=== PATIENT | female | born 1965 | race African-American/Black ===

== ENCOUNTER 2018-07-10 15:51 | Outpatient (CLI) | payer OTHER | END 2018-07-10 15:52 | disposition home or self-care (01) | LOC: DTY/OP 15:51 | PROVIDERS: ATTEND Surgery | DX: E66.01 Morbid (severe) obesity due to excess calories (principal) | CPT/HCPCS: 97802 ==

== ENCOUNTER 2018-08-10 16:13 | Outpatient (CLI) | payer OTHER | END 2018-08-10 16:14 | disposition home or self-care (01) | LOC: DTY/OP 16:13 | PROVIDERS: ATTEND Surgery | DX: E66.01 Morbid (severe) obesity due to excess calories (principal) | CPT/HCPCS: 97802 ==

== ENCOUNTER 2018-08-31 15:57 | Outpatient (CLI) | payer OTHER | END 2018-08-31 15:58 | disposition home or self-care (01) | LOC: DTY/OP 15:57 | PROVIDERS: ATTEND Surgery | DX: E66.01 Morbid (severe) obesity due to excess calories (principal) | CPT/HCPCS: 97802 ==

== ENCOUNTER 2018-10-10 15:53 | Outpatient (CLI) | payer OTHER | END 2018-10-10 15:54 | disposition home or self-care (01) | LOC: DTY/OP 15:53 | PROVIDERS: ATTEND Surgery | DX: E66.01 Morbid (severe) obesity due to excess calories (principal) | CPT/HCPCS: 97802 ==

== ENCOUNTER 2018-11-06 01:44 | Outpatient (CLI) | payer OTHER ==
[2018-11-06 18:25] LABS: #Basophils 0.1 thou/uL (0.0-0.2); #Eosinphils 0.2 thou/uL (0.0-0.7); #Lymphocytes 2.2 thou/uL (1.20-3.40); #Monocytes 0.5 thou/uL (0.11-0.59); #Neutrophils 5.2 thou/uL (1.40-6.50); %Basophils 1.1 % (0.0-1.0); %Lymphocytes 26.7 % (21.0-51.0); %Monocytes 6.6 % (0.0-10.0); %Neutrophils 63.6 % (42.0-75.0); Hemoglobin 13.7 g/dL (12.0-16.0); Mean Corpuscular HGB CONC 31.6 g/dL (32.0-36.0); Mean Corpuscular Hemoglobin 25.8 pg (27.0-31.0); Mean Corpuscular Volume 81.8 fL (78.0-98.0); Platelet Count 357 thou/uL (130-400); RBC Distribution Width 13.1 % (11.5-14.5); Red Blood Cell (RBC) Count 5.31 mill/uL (4.20-5.40); White Blood Cell (WBC) Count 8.2 thou/uL (4.8-10.8)
[2018-11-06 18:41] LABS: Hemoglobin A1c 5.1 % (4.0-6.0)
[2018-11-06 18:44] LABS: ALT (SGPT) 14 U/L (8-55); AST (SGOT) 28 U/L (5-34); Albumin 4.4 g/dL (3.5-5.0); Alkaline Phosphatase 79 U/L (40-150); Anion Gap 15 mmol/L (10-20); BUN (Urea Nitrogen) 35 mg/dL (9.8-20.1); Bilirubin, Direct 0.2 mg/dL (0.1-0.3); Bilirubin, Total 0.4 mg/dL (0.2-1.2); Calc. Creatinine Clearance 0 mL/min (70-130); Calcium 10.1 mg/dL (7.8-10.44); Carbon Dioxide 23 mmol/L (22-29); Chloride 105 mmol/L (98-107); Estimated GFR-MDRD 86; Globulin 2.9 g/dL (2.4-3.5); Glucose 90 mg/dL (70-105); Potassium 4.3 mmol/L (3.5-5.1); Protein, Total 7.3 g/dL (6.0-8.3); Sodium 139 mmol/L (136-145)
--- NOTE | 2018-11-06 18:52 | RAD ---
PA AND LATERAL CHEST: History: Pre op. FINDINGS: Heart size and mediastinum are within normal limits. The lungs are clear of infiltrates. No significa nt bony findings. IMPRESSION: No active intrathoracic disease. POS: JUAN
== END 2018-11-06 01:45 | disposition home or self-care (01) ==
LOC: LABBT 01:44
PROVIDERS: ATTEND Surgery
DX: Z01.818 Encounter for other preprocedural examination (principal); E66.01 Morbid (severe) obesity due to excess calories
CPT/HCPCS: 71046; 80053; 80076; 83036; 85025

== ENCOUNTER 2018-11-06 17:00 | Inpatient (IN) | payer OTHER ==
[2018-11-06 17:34] VITALS: BMI 49.6
[2018-11-08] MEDS ORDERED: Heparin 5,000 UNITS/ML VIAL ONE (07:53)
[2018-11-08] MEDS ORDERED: Fentanyl 250 MCG/5 ML VIAL ONE (08:26)
[2018-11-08] MEDS ORDERED: Lidocaine 2% Jelly 5 ML TUBE ONE (08:26)
[2018-11-08] MEDS ORDERED: Midazolam HCl 2 mg/2 ml Vial ONE ×2 (08:26→08:28)
[2018-11-08] MEDS ORDERED: Bupivacaine/Epinephrine 0.25% 30 ML VIAL ONE (08:29)
[2018-11-08] MEDS ORDERED: Fentanyl 100 MCG/2 ML VIAL ONE ×3 (10:25→12:11)
[2018-11-08] MEDS ORDERED: Promethazine HCl 25 MG/ML VIAL SLOW IVP PRN (11:42)
[2018-11-08] MEDS ORDERED: Ondansetron HCl/PF 4 MG/2 ML Vial IVP PRN (11:42)
[2018-11-08] MEDS ORDERED: Promethazine HCl 25 MG/ML VIAL IM PRN ×3 (11:42→12:15)
[2018-11-08] MEDS ORDERED: Dextrose 50% Abboject 50 ML SYRINGE SLOW IVP PRN (11:46)
[2018-11-08] MEDS ORDERED: hydrALAZINE 20 MG/ML VIAL SLOW IVP PRN (11:46)
[2018-11-08] MEDS ORDERED: diphenhydrAMINE 50 MG/ML VIAL IVP PRN ×2 (11:46→12:15)
[2018-11-08] MEDS ORDERED: Ondansetron PF 4 MG/2 ML Vial IVP PRN ×2 (11:46→12:15)
[2018-11-08] MEDS ORDERED: Dextrose 5% in Water 1,000 ML IV PRN (11:46)
[2018-11-08] MEDS ORDERED: Acetaminophen/Codeine Oral Solution PO PRN (11:48)
[2018-11-08] MEDS ORDERED: Promethazine HCl 25 MG/ML VIAL ONE (12:08)
[2018-11-08] MEDS ORDERED: Succinylcholine Chloride 20 MG/ML 10 ml SYRINGE FS ONE (12:12)
[2018-11-08] MEDS ORDERED: PROPOFOL 200 MG/20 ML VIAL ONE (12:12)
[2018-11-08] MEDS ORDERED: Dexamethasone 20 MG/5 ML VIAL ONE (12:12)
[2018-11-08] MEDS ORDERED: Lidocaine 1% PF 5 ML VIAL ONE (12:12)
[2018-11-08] MEDS ORDERED: Glycopyrrolate 0.2 MG/ML 5 ML SYRINGE ONE (12:12)
[2018-11-08] MEDS ORDERED: Ondansetron PF 4 MG/2 ML Vial ONE (12:12)
[2018-11-08] MEDS ORDERED: Rocuronium Bromide 10 MG/ML (10ML VIAL) ONE (12:12)
[2018-11-08] MEDS ORDERED: Communication Order-Pharmacy FS SCH (12:15)
[2018-11-08] MEDS ORDERED: Zolpidem Tartrate 5 MG TAB PO PRN (12:15)
[2018-11-08] MEDS ORDERED: diphenhydrAMINE 25 MG CAP PO PRN (12:15)
[2018-11-08] MEDS ORDERED: fentaNYL Citrate/PF 2,000 MCG in Sodium Chloride 0.9% 60 ML IV PRN (12:15)
[2018-11-08] MEDS ORDERED: Naloxone HCl 0.4 mg/ml Vial IV PRN (12:15)
[2018-11-08] MEDS ORDERED: diphenhydrAMINE 50 MG/ML VIAL IM PRN (12:15)
[2018-11-08] MEDS: CEFAZOLIN 2 GM in Premix Bag 1 BAG IVPB SCH (16:12)
[2018-11-08] MEDS: D5 1/2 NS w/20 mEq KCL 1,000 ML IV SCH (16:12)
[2018-11-09] MEDS: CEFAZOLIN 2 GM in Premix Bag 1 BAG IVPB SCH (00:37)
[2018-11-09] MEDS: D5 1/2 NS w/20 mEq KCL 1,000 ML IV SCH ×4 (00:37→23:37)
[2018-11-09 06:26] LABS: #Lymphocytes 1.3 thou/uL (1.20-3.40); #Neutrophils 8.5 thou/uL (1.40-6.50); %Basophils 0.2 % (0.0-1.0); %Lymphocytes 11.6 % (21.0-51.0); %Monocytes 9.5 % (0.0-10.0); %Neutrophils 78.7 % (42.0-75.0); Hemoglobin 12.5 g/dL (12.0-16.0); Mean Corpuscular HGB CONC 32.3 g/dL (32.0-36.0); Mean Corpuscular Hemoglobin 26.2 pg (27.0-31.0); Mean Corpuscular Volume 81.1 fL (78.0-98.0); Platelet Count 332 thou/uL (130-400); RBC Distribution Width 13.3 % (11.5-14.5); Red Blood Cell (RBC) Count 4.78 mill/uL (4.20-5.40); White Blood Cell (WBC) Count 10.8 thou/uL (4.8-10.8)
[2018-11-09 06:46] LABS: Anion Gap 12 mmol/L (10-20); BUN (Urea Nitrogen) 11 mg/dL (9.8-20.1); Calc. Creatinine Clearance 175 mL/min (70-130); Calcium 8.9 mg/dL (7.8-10.44); Carbon Dioxide 22 mmol/L (22-29); Chloride 105 mmol/L (98-107); Estimated GFR-MDRD Greater than 90; Glucose 138 mg/dL (70-105); Potassium 4.1 mmol/L (3.5-5.1); Sodium 135 mmol/L (136-145)
[2018-11-09] MEDS: Enoxaparin Sodium 40 MG/0.4 ML SYRINGE SC SCH (08:04)
[2018-11-09] MEDS: Pantoprazole 40 MG VIAL IVP SCH (08:04)
--- NOTE | 2018-11-09 09:00 | OP ---
DATE OF PROCEDURE: 11/08/2018 PREOPERATIVE DIAGNOSIS: Morbid obesity with history of hiatal hernia and reflux. PROCEDURES PERFORMED: Laparoscopic Cheikh-en-Y gastric bypass repair of hiatal hernia and esophagogastroduodenoscopy. INDICATIONS FOR PROCEDURE: A 52-year-old morbidly obese female with severe reflux. She had a CT scan showing moderate hiatal hernia. FINDINGS: Used about 100 cm Cheikh limb, 50 cm biliopancreatic limb, moderate hiatal hernia. DESCRIPTION OF PROCEDURE: After informed consent was obtained, the patient was taken to the operating room and given general endotracheal anesthesia. She was placed in the supine position. Her abdomen was prepped and draped in usual fashion. Local anesthesia was infiltrated subcutaneously and deep, and a 12-mm incision was performed approximately 8 inches below the xiphoid slightly to the left. Veress needle was inserted. Drop test was performed. Pneumoperitoneum was created to a volume of 2 L of carbon dioxide. Utilizing a bladeless 12-mm trocar and 0-degree laparoscope, direct visual entry into the abdominal cavity was performed. Pneumoperitoneum was then created to a pressure of 15 mmHg. Under direct vision, two 12-mm ports were placed on the right and then one on the left upper quadrant. The omentum was grasped and advanced superiorly to expose the ligament of Treitz. The small bowel was then run 50 cm and divided utilizing the linear 60-mm white load stapler. Now, there was some hemorrhage from the cut surface of the mesentery. This was controlled with hemoclips. Then, the Cheikh limb was created measuring of 100 cm, and a [id number] functional, end-to-end anastomosis was performed. The two loops of bowel were approximated with 3-0 silk suture tied intracorporeally. Enterotomies were performed, and the linear 60-mm white load stapler was inserted, one limb in each limb of bowel, closed, and fired. The common enterotomy was closed with a running PDS 3-0 V-Loc. Then, the potential hernia space Marrufo was closed with a pursestring of 2-0 silk suture tied intracorporeally. Then, the patient was placed in steep reverse Trendelenburg position. Stephanie liver retractor was inserted. The left lobe of the liver was retracted superiorly. She had a moderate-sized hiatal hernia. The gastrophrenic ligament was divided utilizing the LigaSure. The peritoneum was opened anteriorly with the LigaSure. The left crura was defined with the LigaSure. The hernia was completely reduced. Then, a gastric pouch was created. The lesser curvature was dissected entering the lesser sac. A transverse cut on the lesser curve was performed with the linear 60-mm blue load stapler. Then, the pouch was further defined through the angle of His with a series of blue loads. At this point, a gastrotomy was performed first by scoring the serosa with an electrocautery and then opening up with the [place] dissector. Then, the Cheikh limb was found and brought up to that area, and then a mesenteric score was performed with electrocautery and the [place] dissector. The linear 60-mm blue load stapler was used, one limb was inserted into the jejunum, one limb into the gastric pouch, closed, and fired. The gastrojejunostomy was then further closed with a running 3-0 V-Loc. Intraoperative endoscopy was then performed. The video endoscope was inserted under direct vision and advanced into the gastric pouch and immediately into the Cheikh limb. There was no evidence of obstruction, bleeding, or air leak. The Cheikh limb was decompressed. The gastric pouch was decompressed. The scope was removed. Trocars and retractors were removed. On the right, there was a little bit of bleeding, so a GraNee needle and 0 Vicryl suture were used to control that. Hemostasis was assured. Skin was closed with interrupted 4-0 Rapide. Dermabond was applied. The patient tolerated the procedure well and transferred to Recovery in good condition. Sponge and needle count was verified correct x2. Job ID: [id number]
--- NOTE | 2018-11-09 12:16 | RAD ---
15 ML GASTROGRAFIN MODIFIED UPPER GI: Date: 11/09/18 INDICATION: Status post gastric bypass procedure. TECHNIQUE: 15 mL of Gastrografin administered PO followed by a modified upper GI evaluation. The total fluorosco pic time was 9 seconds. Total exposure was 137.46 mGy*cm^2. FINDINGS: Clinical Cytogenetics Director images demonstrate gas-filled dilated loops of small bowel within the upper abdomen with nayeli us surgical clips within the left upper quadrant. Following the administration of Gastrografin, there is flow of contrast across the gastroenteric junction with slow spillage of intraluminal contrast wi thin dilated loops of small bowel within the left upper quadrant. There is no evidence of extralumina l leak or obstruction. IMPRESSION: 1. No evidence of extraluminal leak or obstruction at the gastric bypass site. 2. Some gas-filled dilated loops of small bowel within the upper abdomen suspicious for postsurgical ileus. POS: DEVI
[2018-11-09] MEDS ORDERED: Acetaminophen/Codeine Oral Solution PO PRN (13:19)
--- NOTE | 2018-11-09 14:57 | PRG ---
DATE OF SERVICE: 11/09/2018 SUBJECTIVE: The patient says that she did vomit after the Gastrografin swallow, but she feels better now. She feels a little weak. Pain is okay. OBJECTIVE: VITAL SIGNS: Her temperature is 98.8, pulse 66, blood pressure 125/61. GENERAL: She looks good. Incisions are healing well. There is no evidence of infection. LABORATORY DATA: Her white count is 10.8, hemoglobin and hematocrit are 12 and 38, and platelet count 332. Electrolytes are fine. The Gastrografin swallow showed some mild hang up at the gastrojejunostomy, but then it went down. ASSESSMENT: Doing well. PLAN: We will begin sips of clear liquids, probably keep her an extra day and then discharge tomorrow. Job ID: [id number]
[2018-11-09] MEDS: Acetaminophen/Codeine 120-12MG/5 ML UDCUP PO PRN (22:47)
[2018-11-10] MEDS: Pantoprazole 40 MG VIAL IVP SCH (09:00)
[2018-11-10] MEDS: D5 1/2 NS w/20 mEq KCL 1,000 ML IV SCH ×3 (09:00→20:43)
[2018-11-10] MEDS: Enoxaparin Sodium 40 MG/0.4 ML SYRINGE SC SCH (09:00)
--- NOTE | 2018-11-10 12:11 | DIS ---
DATE OF ADMISSION: 11/08/2018 DATE OF DISCHARGE: 11/10/2018 DISCHARGE DIAGNOSES: 1. Hiatal hernia. 2. Morbid obesity. PROCEDURES DURING ADMISSION: Laparoscopic hiatal hernia repair, laparoscopic Cheikh-en-Y gastric bypass, EGD, postoperative Gastrografin swallow. HOSPITAL COURSE: The patient was admitted, taken to the operating room, where she underwent a laparoscopic Cheikh-en-Y gastric bypass repair of hiatal hernia on EGD. Postoperatively, she has done well. X-ray was fine. She was started on liquids. She had some trouble the first day with taking enough in, but is better now. She is discharged home on Tylenol with Codeine, Elixir, and Zofran oral disintegrating tablet. She will follow up with me in 2 weeks. Job ID: [id number]
[2018-11-10] MEDS: Acetaminophen/Codeine 120-12MG/5 ML UDCUP PO PRN (19:11)
[2018-11-11] MEDS: Acetaminophen/Codeine 120-12MG/5 ML UDCUP PO PRN ×2 (05:17→17:49)
[2018-11-11] MEDS: Pantoprazole 40 MG VIAL IVP SCH (08:20)
[2018-11-11] MEDS: Enoxaparin Sodium 40 MG/0.4 ML SYRINGE SC SCH (08:20)
[2018-11-11] MEDS: D5 1/2 NS w/20 mEq KCL 1,000 ML IV SCH ×2 (08:34→17:51)
[2018-11-11 15:53] VITALS: BP 112/74; TEMP 99
--- NOTE | 2018-11-11 16:11 | PDOC.GSPN ---
Surgery Progress Note: Subj - Subjective Narrative: Patient is feeling better today and doing better in terms of her oral intake. Her nurse states that she is meeting her goal of drinking 8 ounces of fluid every 2 hours. Her laparoscopic incisions look good and she has only the normal anticipated amount of postoperative tenderness. She is afebrile with normal vital signs. She'll be discharged home this afternoon with follow-up with Dr. Ramon. Surgery Progress Note: Obj - Vital signs Vital signs: Vital Signs - Most Recent Temp Pulse Resp BP Pulse Ox 99 F 72 16 112/74 95 11/11/18 15:40 11/11/18 15:40 11/11/18 15:40 11/11/18 15:40 11/11/18 15:40 Surgery Progress Note: Results - Labs Result Diagrams: 11/09/18 06:18 11/09/18 06:18
== END 2018-11-11 18:05 | disposition home or self-care (01) | DRG 621 ==
LOC: SURG A 11-08 07:00 → SURG B 11-08 13:05
PROVIDERS: ADMIT Surgery; ATTEND Surgery
PROC: 0D164ZA Bypass Stomach to Jejunum, Percutaneous Endoscopic Approach (ICD-10-PCS; principal; 2018-11-08)
PROC: 0BQT4ZZ Repair Diaphragm, Percutaneous Endoscopic Approach (ICD-10-PCS; 2018-11-08)
PROC: 0DQV4ZZ Repair Mesentery, Percutaneous Endoscopic Approach (ICD-10-PCS; 2018-11-08)
PROC: 0DJ08ZZ Inspection of Upper Intestinal Tract, Via Natural or Artificial Opening Endoscopic (ICD-10-PCS; 2018-11-08)
DX: E66.01 Morbid (severe) obesity due to excess calories (principal); K44.9 Diaphragmatic hernia without obstruction or gangrene; K21.9 Gastro-esophageal reflux disease without esophagitis; Z68.42 Body mass index [BMI] 45.0-49.9, adult; Z88.5 Allergy status to narcotic agent; Z90.710 Acquired absence of both cervix and uterus; Z98.890 Other specified postprocedural states
CPT/HCPCS: 36415; 74241; 80048; 85025; 94760; C9113; J0131; J1100; J1644; J1650; J2001; J2250; J2405; J2550; J2704; J3010; J7050

== ENCOUNTER → 2018-11-13 | Emergency (ER) | payer OTHER ==
[~2018-11-13] MED LIST: Multivit, Adult Inj 10 ML VIAL ONE; Thiamine HCl 200 MG/2 ML VIAL ONE
== END ==
LOC: SCSER 12:11
DX: Z23 Encounter for immunization (principal); M19.90 Unspecified osteoarthritis, unspecified site; I38 Endocarditis, valve unspecified; Z79.891 Long term (current) use of opiate analgesic
CPT/HCPCS: 96365; 96368; 96375; J3411

== ENCOUNTER 2018-12-04 15:59 | Emergency (ER) | payer OTHER ==
[~2018-12-04 15:59] MED LIST changes: +Iopamidol 370 76% 100 ML VIAL ONE; -Multivit, Adult Inj 10 ML VIAL ONE; -Thiamine HCl 200 MG/2 ML VIAL ONE
[2018-12-04 16:32] LABS: Hemoglobin 13.3 g/dL (12.0-16.0); Mean Corpuscular HGB CONC 30.8 g/dL (32.0-36.0); Mean Corpuscular Hemoglobin 24.2 pg (27.0-31.0); Mean Corpuscular Volume 78.5 fL (78.0-98.0); Mean Platelet Volume 9.2 fL (7.4-10.4); Platelet Count 317 thou/uL (130-400); RBC Distribution Width 13.6 % (11.5-14.5); Red Blood Cell (RBC) Count 5.48 mill/uL (4.20-5.40); White Blood Cell (WBC) Count 7.2 thou/uL (4.8-10.8)
[2018-12-04 16:47] LABS: #Basophils 0.1 thou/uL (0.0-0.2); #Eosinphils 0.3 thou/uL (0.0-0.7); #Lymphocytes 1.8 thou/uL (1.20-3.40); #Monocytes 0.5 thou/uL (0.11-0.59); #Neutrophils 4.5 thou/uL (1.40-6.50); %Basophils 1.2 % (0.0-1.0); %Eosinophils 3.7 % (0.0-10.0); %Lymphocytes 25.5 % (21.0-51.0); %Monocytes 6.8 % (0.0-10.0); %Neutrophils 62.8 % (42.0-75.0); ALT (SGPT) 12 U/L (8-55); AST (SGOT) 18 U/L (5-34); Alkaline Phosphatase 72 U/L (40-150); Anion Gap 15 mmol/L (10-20); BUN (Urea Nitrogen) 19 mg/dL (9.8-20.1); Bilirubin, Total 0.4 mg/dL (0.2-1.2); Calc. Creatinine Clearance 0 mL/min (70-130); Calcium 9.8 mg/dL (7.8-10.44); Carbon Dioxide 22 mmol/L (22-29); Chloride 108 mmol/L (98-107); Estimated GFR-MDRD 84; Globulin 3.5 g/dL (2.4-3.5); Glucose 107 mg/dL (70-105); Lipase 32 U/L (8-78); Potassium 3.6 mmol/L (3.5-5.1); Protein, Total 7.5 g/dL (6.0-8.3); Sodium 141 mmol/L (136-145)
[2018-12-04 16:48] LABS: MDiff Complete? YES; Microcytosis SLIGHT = 6-15 cells (100X) (0-5/hpf); Platelet Morphology Comment Appears Adequate
[2018-12-04 18:15] LABS: Bilirubin Moderate (Negative); Blood, Urine Negative (Negative); Clarity Clear (Clear); Glucose, Urine (Dipstick) Negative (Negative); Leukocyte Negative (Negative); Nitrite Negative (Negative); Protein, Urine (Dipstick) 100 mg/dL (Neg-Trace)
[2018-12-04 18:20] LABS: Specific Gravity, Urine 1.026 (1.002-1.036)
[2018-12-04 18:22] LABS: Bacteria/HPF 2+ HPF (None Seen); RBC/HPF None Seen HPF (0-3); WBC/HPF None Seen HPF (0-3)
--- NOTE | 2018-12-04 20:15 | CT ---
CT ABDOMEN AND PELVIS WITH IV AND ORAL CONTRAST: History: Abdominal pain. Gastric bypass last month. Comparison: 08-04-09 FINDINGS: Mild atelectasis at the left lung base. Post-operative changes of the stomach consistent with recent gastric bypass procedure. Fluid is present within the excluded portion of the remaining stomach. Cont rast material is present within a small upper remaining gastric lumen and within the nondilated dista l small bowel. Radiopaque suture within the left upper quadrant is present within the omental fat, extending lateral ly to a nondilated loop of small bowel. No free fluid or free air. Small low density lesion involving the anterior lateral margin of the spleen is smaller than on the previous study, now 1.9 cm greatest diameter. Small right renal cyst is stable. IMPRESSION: Post-operative changes left upper quadrant. No evidence of obstruction or leak. POS: DEVI
== END 2018-12-04 19:13 | disposition home or self-care (01) ==
LOC: SCSER 15:59
DX: R10.11 Right upper quadrant pain (principal); I05.9 Rheumatic mitral valve disease, unspecified
CPT/HCPCS: 74177; 80053; 81003; 81015; 83605; 83690; 85025; 96360; Q9967

== ENCOUNTER 2019-01-04 20:19 | Emergency (ER) | payer OTHER ==
[2019-01-04] MEDS ORDERED: Multivit, Adult Inj 10 ML VIAL ONE (20:52)
== END 2019-01-04 22:15 | disposition home or self-care (01) ==
LOC: SCSER/OP 20:19
DX: Z53.21 Procedure and treatment not carried out due to patient leaving prior to being seen by health care provider (principal)

== ENCOUNTER 2019-02-16 09:15 | Outpatient (CLI) | payer OTHER ==
[2019-02-16 09:41] LABS: Hemoglobin 11.2 g/dL (12.0-16.0); Mean Corpuscular Hemoglobin 25.1 pg (27.0-31.0); Mean Corpuscular Volume 80.8 fL (78.0-98.0); Mean Platelet Volume 7.7 fL (7.4-10.4); Platelet Count 318 thou/uL (130-400); RBC Distribution Width 15.4 % (11.5-14.5); Red Blood Cell (RBC) Count 4.45 mill/uL (4.20-5.40); White Blood Cell (WBC) Count 5.1 thou/uL (4.8-10.8)
[2019-02-16 10:12] LABS: ALT (SGPT) 8 U/L (8-55); AST (SGOT) 12 U/L (5-34); Albumin 3.3 g/dL (3.5-5.0); Alkaline Phosphatase 63 U/L (40-150); Anion Gap 11 mmol/L (10-20); BUN (Urea Nitrogen) 11 mg/dL (9.8-20.1); Bilirubin, Direct 0.3 mg/dL (0.1-0.3); Bilirubin, Total 0.6 mg/dL (0.2-1.2); Calc. Creatinine Clearance 0 mL/min (70-130); Calcium 9.2 mg/dL (7.8-10.44); Carbon Dioxide 27 mmol/L (22-29); Chloride 109 mmol/L (98-107); Cholesterol 164 mg/dl (< 200 Desired); Estimated GFR-MDRD Greater than 90; Globulin 2.6 g/dL (2.4-3.5); Glucose 83 mg/dL (70-105); HDL Cholesterol 41 mg/dL (>60 Neg Risk); LDL Cholesterol, Calculated 110 mg/dL; Potassium 3.5 mmol/L (3.5-5.1); Protein, Total 5.9 g/dL (6.0-8.3); Sodium 143 mmol/L (136-145); Triglycerides 65 mg/dL (Less than 150)
[2019-02-16 10:22] LABS: Thyroid Stimulating Hormone 1.5455 uIU/mL (0.35-4.94)
--- NOTE | 2019-02-16 10:37 | ULT ---
RIGHT UPPER QUADRANT ULTRASOUND: Date: 02/16/19 HISTORY: Right upper quadrant pain. TECHNIQUE: Multiplanar Wild scale sonographic imaging of the right upper quadrant provided. FINDINGS: The imaged pancreas is unremarkable. The tail of the pancreas is obscured by bowel gas. There is no focal liver lesion identified. There is no gallbladder wall thickening or pericholecystic fluid. The salesforce consultant reports a negative Duong's sign. There is echogenic material layering within the posterior aspect of the gallbladder with shadowing an d mobility, suggesting numerous small mobile gallstones. The common bile duct measures 3 mm, within n ormal limits. The right kidney measures 10.3 cm in craniocaudal dimension and demonstrates no evidence for stone, h ydronephrosis, or mass lesion. IMPRESSION: Cholelithiasis. No evidence for cholecystitis or biliary dilatation. POS: [facility]
[2019-02-16 12:09] LABS: Folate (Folic Acid) 11.4 ng/mL (7.0-31.4)
[2019-02-16 12:18] LABS: Vitamin D, 25 Hydroxy 33.3 ng/ml (> 30.0)
== END 2019-02-16 09:16 | disposition home or self-care (01) ==
LOC: SCSULT 09:15
PROVIDERS: ATTEND Surgery
DX: Z51.81 Encounter for therapeutic drug level monitoring (principal); R11.0 Nausea; R10.11 Right upper quadrant pain; E56.9 Vitamin deficiency, unspecified; K80.20 Calculus of gallbladder without cholecystitis without obstruction; Z79.899 Other long term (current) drug therapy
CPT/HCPCS: 36415; 76705; 80053; 80061; 82248; 82306; 82607; 82746; 84425; 84443; 85027

== ENCOUNTER 2019-03-28 16:39 | Outpatient (CLI) | payer OTHER ==
[2019-03-28 17:16] LABS: #Basophils 0.1 thou/uL (0.0-0.2); #Eosinphils 0.1 thou/uL (0.0-0.7); #Lymphocytes 2.1 thou/uL (1.20-3.40); #Monocytes 0.4 thou/uL (0.11-0.59); #Neutrophils 3.2 thou/uL (1.40-6.50); %Basophils 1.5 % (0.0-1.0); %Eosinophils 2.4 % (0.0-10.0); %Lymphocytes 34.5 % (21.0-51.0); %Monocytes 7.2 % (0.0-10.0); %Neutrophils 54.3 % (42.0-75.0); Mean Corpuscular HGB CONC 31.1 g/dL (32.0-36.0); Mean Corpuscular Hemoglobin 25.7 pg (27.0-31.0); Mean Corpuscular Volume 82.8 fL (78.0-98.0); Mean Platelet Volume 8.9 fL (7.4-10.4); Platelet Count 304 thou/uL (130-400); RBC Distribution Width 14.2 % (11.5-14.5); Red Blood Cell (RBC) Count 4.67 mill/uL (4.20-5.40)
[2019-03-28 17:43] LABS: ALT (SGPT) 8 U/L (8-55); AST (SGOT) 14 U/L (5-34); Albumin 3.8 g/dL (3.5-5.0); Alkaline Phosphatase 74 U/L (40-150); Anion Gap 10 mmol/L (10-20); BUN (Urea Nitrogen) 15 mg/dL (9.8-20.1); Bilirubin, Direct 0.2 mg/dL (0.1-0.3); Bilirubin, Total 0.3 mg/dL (0.2-1.2); Calc. Creatinine Clearance 0 mL/min (70-130); Calcium 9.2 mg/dL (7.8-10.44); Carbon Dioxide 26 mmol/L (22-29); Chloride 107 mmol/L (98-107); Estimated GFR-MDRD Greater than 90; Globulin 2.5 g/dL (2.4-3.5); Glucose 89 mg/dL (70-105); Potassium 3.6 mmol/L (3.5-5.1); Protein, Total 6.3 g/dL (6.0-8.3); Sodium 139 mmol/L (136-145)
--- NOTE | 2019-03-29 16:48 | EKG ---
Test Reason : Blood Pressure : / mmHG Vent. Rate : 059 BPM Atrial Rate : 059 BPM P-R Int : 168 ms QRS Dur : 080 ms QT Int : 422 ms P-R-T Axes : 046 021 020 degrees QTc Int : 417 ms Sinus bradycardia Otherwise normal ECG When compared with ECG of 08-JAN-2016 21:38, No significant change was found Confirmed by DR. Linda HARTMAN ([id number]) on 03/29/2019 4:48:15 PM Referred By: FELA Confirmed By:DR. Linda HARTMAN
== END 2019-03-28 16:40 | disposition home or self-care (01) ==
LOC: LABBT 16:39
PROVIDERS: ATTEND Surgery
DX: Z01.818 Encounter for other preprocedural examination (principal); K80.20 Calculus of gallbladder without cholecystitis without obstruction
CPT/HCPCS: 80053; 80076; 85025; 93005; 93010

== ENCOUNTER 2019-03-30 10:01 | Day surgery (SDC) | payer OTHER ==
[2019-03-28 17:06] VITALS: BMI 40.3
[2019-03-30] MEDS ORDERED: Sodium Chloride 0.9% 100 ML ONE (11:04)
[2019-03-30] MEDS ORDERED: cefOXitin 2 GM VIAL ONE (11:04)
[2019-03-30] MEDS ORDERED: Bupivacaine/Epinephrine 0.25% 30 ML VIAL ONE (11:57)
[2019-03-30] MEDS ORDERED: Midazolam HCl 2 mg/2 ml Vial ONE (11:59)
[2019-03-30] MEDS ORDERED: Fentanyl 250 MCG/5 ML VIAL ONE (11:59)
[2019-03-30] MEDS ORDERED: SUGAMMADEX SODIUM 200 MG/2 ML VIAL ONE (13:05)
[2019-03-30] MEDS ORDERED: Fentanyl 100 MCG/2 ML VIAL ONE (14:00)
[2019-03-30] MEDS ORDERED: Acetaminophen/Codeine 30-300mg Tablet ONE (15:49)
[2019-03-30] MEDS ORDERED: PROPOFOL 200 MG/20 ML VIAL ONE (16:01)
[2019-03-30] MEDS ORDERED: Ondansetron PF 4 MG/2 ML Vial ONE (16:01)
[2019-03-30] MEDS ORDERED: Glycopyrrolate 0.2 MG/ML 5 ML SYRINGE ONE (16:01)
[2019-03-30] MEDS ORDERED: Dexamethasone 20 MG/5 ML VIAL ONE (16:01)
[2019-03-30] MEDS ORDERED: Ketorolac Tromethamine 30 MG/ML VIAL ONE (16:01)
[2019-03-30] MEDS ORDERED: Metoprolol Tartrate 5 MG/5 ML VIAL ONE (16:01)
[2019-03-30] MEDS ORDERED: Lidocaine 1% PF 5 ML VIAL ONE (16:01)
[2019-03-30] MEDS ORDERED: Rocuronium Bromide 10 MG/ML (10ML VIAL) ONE (16:01)
--- NOTE | 2019-04-02 09:35 | OP ---
DATE OF PROCEDURE: 03/30/2019 PREOPERATIVE DIAGNOSIS: Symptomatic cholelithiasis. PROCEDURE PERFORMED: Laparoscopic cholecystectomy. INDICATIONS: A 53-year-old female, who has been having episodic right upper quadrant pain. Ultrasound showed cholelithiasis. FINDINGS: We used indocyanine green dye preoperatively and using the special camera intraoperative, we were able to visualize the common bile duct as well as the cystic duct without evidence of any filling defects. DESCRIPTION OF PROCEDURE: After informed consent was obtained, the patient was given the indocyanine green 0.5 mL followed by 10 mL of saline IV. She was taken to the operating room, where she underwent general endotracheal anesthesia. She was placed in supine position. Abdomen was prepped and draped in usual fashion. Local anesthesia infiltrated subcutaneously and deep. A supraumbilical incision was performed. Subcu divided sharply. The fascia grasped and 2 stay sutures of 0 Vicryl placed in each side of midline. Midline incised. Digital palpation revealed no local adhesions. A blunt 12 mm trocar inserted pneumoperitoneum was created to a pressure of 15 mmHg. A 0 degree laparoscope inserted under direct vision. Three 5 mm ports were placed subcostally. Gallbladder was grasped and advanced superiorly. The cystic duct artery in critical view was dissected out. Then, the camera was switched to the imaging mode for the dye and this showed free flow of dye from the common duct into the gallbladder. No obstruction. The duct was triply ligated with hemoclips and divided. The artery triply ligated with hemoclips and divided. The gallbladder removed from its fossa utilizing electrocautery, was placed in endosac, removed from the abdomen in the endosac. Hemostasis assured. Trocars and retractors removed. The fascia closed with interrupted 0 Vicryl suture. The skin closed with interrupted 4-0 Rapide. Dermabond applied. The patient tolerated the procedure well, transferred to Recovery in good condition. Sponge and needle count verified correct x2. Job ID: [id number]
== END 2019-03-30 17:40 | disposition home or self-care (01) ==
LOC: SDC 10:01
PROVIDERS: ATTEND Surgery
PROC: 0FT44ZZ Resection of Gallbladder, Percutaneous Endoscopic Approach (ICD-10-PCS; principal; 2019-03-30)
DX: K80.10 Calculus of gallbladder with chronic cholecystitis without obstruction (principal); I83.90 Asymptomatic varicose veins of unspecified lower extremity; Z88.5 Allergy status to narcotic agent; Z91.012 Allergy to eggs; Z79.899 Other long term (current) drug therapy
CPT/HCPCS: 88304; J0694; J2250; J3010; J3490

== ENCOUNTER 2020-05-10 18:28 | Inpatient (IN) | payer OTHER ==
[2020-05-10 18:45] LABS: #Basophils 0.1 thou/uL (0.0-0.2); #Eosinphils 0.1 thou/uL (0.0-0.7); #Lymphocytes 1.9 thou/uL (1.20-3.40); #Monocytes 0.4 thou/uL (0.11-0.59); #Neutrophils 2.6 thou/uL (1.40-6.50); %Basophils 1.1 % (0.0-1.0); %Eosinophils 2.8 % (0.0-10.0); %Lymphocytes 37.3 % (21.0-51.0); %Monocytes 7.9 % (0.0-10.0); %Neutrophils 50.8 % (42.0-75.0); Hemoglobin 12.2 g/dL (12.0-16.0); Mean Corpuscular HGB CONC 32.7 g/dL (32.0-36.0); Mean Corpuscular Hemoglobin 27.1 pg (27.0-31.0); Platelet Count 241 thou/uL (130-400); RBC Distribution Width 12.5 % (11.5-14.5); White Blood Cell (WBC) Count 5.1 thou/uL (4.8-10.8)
[2020-05-10 19:08] LABS: ALT (SGPT) 11 U/L (8-55); AST (SGOT) 16 U/L (5-34); Albumin 3.8 g/dL (3.5-5.0); Alkaline Phosphatase 74 U/L (40-110); Anion Gap 7 mmol/L (10-20); BUN (Urea Nitrogen) 14 mg/dL (9.8-20.1); Bilirubin, Total 0.3 mg/dL (0.2-1.2); Calc. Creatinine Clearance 0 mL/min (70-130); Calcium 8.7 mg/dL (7.8-10.44); Carbon Dioxide 30 mmol/L (22-29); Chloride 106 mmol/L (98-107); Estimated GFR-MDRD 86; Globulin 2.4 g/dL (2.4-3.5); Glucose 92 mg/dL (70-105); Potassium 3.7 mmol/L (3.5-5.1); Protein, Total 6.2 g/dL (6.0-8.3); Sodium 139 mmol/L (136-145)
[2020-05-10 20:28] LABS: Bilirubin Negative (Negative); Blood, Urine Negative (Negative); Clarity Clear (Clear); Glucose, Urine (Dipstick) Normal (Negative); Ketone, Urine Negative (Negative); Leukocyte Negative Leu/uL (Negative); Nitrite Negative (Negative); Protein, Urine (Dipstick) Negative (Neg-Trace); Specific Gravity, Urine 1.026 (1.002-1.036); Urobilinogen Normal mg/dL (Less than 2)
[2020-05-10] MEDS ORDERED: Morphine 4 MG/ML VIAL ONE (22:44)
[2020-05-11] MEDS ORDERED: Pantoprazole 40 MG VIAL ONE (01:21)
[2020-05-11] MEDS ORDERED: Pantoprazole 80 MG, Admixture Fee 1 EACH in Sodium Chloride 0.9% 100 ML IVPB SCH (01:30)
[2020-05-11 03:11] VITALS: BMI 32.1
[2020-05-11] MEDS ORDERED: Ondansetron ODT 4 MG TAB SL PRN (03:14)
[2020-05-11] MEDS ORDERED: Ondansetron PF 4 MG/2 ML Vial IVP PRN ×2 (03:14→19:56)
[2020-05-11] MEDS: Morphine 4 MG/ML VIAL SLOW IVP PRN ×2 (03:41→06:47)
[2020-05-11] MEDS: Sodium Chloride 0.9% 1,000 ML IV SCH ×2 (03:41→12:16)
--- NOTE | 2020-05-11 07:32 | CT ---
CT ABDOMEN AND PELVIS WITH IV CONTRAST: Date: 05/10/2020 PROVIDED CLINICAL HISTORY: Abdominal pain. FINDINGS: Comparison is made with the study dated 12/04/2018. The visualized lung bases are free of significant opacity. The solid abdominal organs demonstrate no significant abnormality. Changes of prior cholecystectomy and Cheikh-en-Y gastric bypass are redemonstrated. The appendix appear s normal. There is a focal ectatic loop of bowel within the left upper quadrant adjacent to postsurgi peyton change. There is no evidence for bowel obstruction. There is no inflammatory fat stranding, free fluid, or free intraperitoneal air apparent. The regional major vascular structures appear unremarkable. The osseous structures demonstrate no concerning lytic or blastic lesions. IMPRESSION: No evidence for an acute process. POS: CHRIS
[2020-05-11 13:48] LABS: SARS-CoV-2 MS2 Positive; SARS-CoV-2 N Gene Negative; SARS-CoV-2 S Gene Negative; SARS-CoV-2 by NAA Not Detected (NotDetected); SARS-CoV-2 orf1ab Negative
[2020-05-11] MEDS ORDERED: Morphine 2 MG/ML VIAL SLOW IVP PRN (19:56)
[2020-05-11] MEDS: Pantoprazole 40 MG VIAL IVP SCH (20:23)
[2020-05-11] MEDS: D5 1/2 NS w/20 mEq KCL 1,000 ML IV SCH (20:23)
--- NOTE | 2020-05-12 00:12 | CON ---
DATE OF CONSULTATION: 05/11/2020 CHIEF COMPLAINT: Abdominal pain. HISTORY OF PRESENT ILLNESS: Ms. Matthews is a 54-year-old woman who underwent gastric bypass surgery back in early 2018. Over the last week, she has had epigastric aching pain that radiates through to her back that lasts for hours at a time. She has had some degree of symptoms intermittently for months, but this is much worse over the last few days. She has had nausea, but no vomiting with this. No diarrhea or constipation. Her pain occurs immediately after eating primarily. She had a CT scan of the abdomen and pelvis performed yesterday, which showed retention of the oral contrast in her stomach. Primarily, stools noted in the colon as well. She has had no blood in the stool. PAST MEDICAL HISTORY: Morbid obesity and mitral valve regurgitation. PAST SURGICAL HISTORY: Gastric bypass in October 2018. She had cholecystectomy in March 2019. She has had hysterectomy and hernia repair. FAMILY HISTORY: Negative for GI malignancies. SOCIAL HISTORY: No alcohol, tobacco, or drugs. ALLERGIES: NO KNOWN DRUG ALLERGIES. MEDICATIONS: Pantoprazole. As an outpatient, she is on vitamins including multiple vitamin, iron, B12, vitamin D, omega-3 fatty acids. REVIEW OF SYSTEMS: Negative x10 systems reviewed except as stated in the history of present illness. PHYSICAL EXAMINATION: VITAL SIGNS: Temperature 98.6, pulse 56, blood pressure 117/72. GENERAL: She is in no acute distress. Alert and oriented x3. HEENT: Eyes have no scleral icterus. Oropharynx is clear without lesions. No cervical or supraclavicular lymphadenopathy. LUNGS: Clear to auscultation bilaterally. HEART: Regular rate and rhythm without murmur. ABDOMEN: Soft. Mild tenderness in the epigastric region without guarding. Bowel sounds are present. EXTREMITIES: No lower extremity edema. LABORATORY DATA: White blood cell count 5.1, hemoglobin 12.2, platelets 241. Creatinine is 0.83. Bilirubin 0.3, AST 16, ALT 11, alkaline phosphatase 74, lipase 6. IMPRESSION: Epigastric pain. CT scan shows apparent retention of contrast in the gastric pouch. She has had gastric bypass surgery back in October 2018 and cholecystectomy in March 2019. Her liver tests are normal. She does have some significant stool in the colon noted by CT. We will plan upper endoscopy to rule out anastomotic ulcer or stenosis. If this is normal, then consider adding a laxative. RECOMMENDATIONS: 1. EGD tomorrow. 2. Proton pump inhibitor. Job ID: [id number]
[2020-05-12] MEDS: D5 1/2 NS w/20 mEq KCL 1,000 ML IV SCH ×2 (06:06→15:34)
--- NOTE | 2020-05-12 06:12 | HP ---
CHIEF COMPLAINT: Abdominal pain. HISTORY OF PRESENT ILLNESS: Ms. Matthews is a 54-year-old woman, who is one year status post laparoscopic gastric bypass by Dr. Ramon. She has lost over 100 pounds with the procedure, but has had problems with intermittent epigastric pain and nausea. This has been a bit of a problem since the operation, but her symptoms were tolerable. She states that Dr. Ramon had tried to order some additional imaging to evaluate her symptoms, but her insurance denied it, so she has just been coping with it. She states that, however, for the past 5 days, the pain has been getting much worse whenever she tries to eat and on the day of her admission became so severe that she was literally brought to her knees. She has terrible nausea, but is unable to vomit. She feels like it would help if she could. She has not had any fevers or chills. The pain is sharp and severe and located in her epigastrium. It is exacerbated by eating. Nothing she tried at home was giving her any relief. She did start taking eulv-mcl-uqhoehb omeprazole a few days ago, but has not noticed any difference in her symptoms. PAST MEDICAL HISTORY: Mitral regurgitation and morbid obesity. PAST SURGICAL HISTORY: Gastric bypass, hysterectomy, cholecystectomy, history of esophageal dilatation in 2014, and hernia repair. SOCIAL HISTORY: The patient does not smoke or use illicit drugs, and drinks only rarely and not recently. ALLERGIES: SHE REPORTS ALLERGIES TO EGG AND HYDROCODONE. OUTPATIENT MEDICATIONS: Include; 1. Multivitamin. 2. B12. 3. Iron. 4. Fish oil. 5. Probiotic. 6. Recent omeprazole. REVIEW OF SYSTEMS: Ten-system review of systems negative except per HPI. PHYSICAL EXAMINATION: VITAL SIGNS: The patient is afebrile, heart rate 54, respirations 14, 99% saturated on room air, and blood pressure 117/72. GENERAL: Reveals a healthy-appearing woman, in no acute distress. She is not jaundiced or icteric. She is not flushed or toxic in appearance. HEENT: Unremarkable. Eyes; extraocular movements are intact and pupils are equal. NECK: Supple without lymphadenopathy or thyroid nodules. HEART: Regular in its rate and rhythm. She does have a soft systolic murmur at the right upper sternal border. LUNGS: Clear to auscultation bilaterally and she is able to take a deep breath without pain. ABDOMEN: Soft and nondistended. She is tender to palpation in the epigastrium. Does not exhibit rigidity, rebound, or guarding. EXTREMITIES: Warm and well perfused without edema. NEURO: No focal deficits. PSYCHIATRIC: Alert, oriented, and appropriate with a normal affect. LABORATORY DATA: White count is normal at 5.1, hematocrit 37, and platelets 241. Electrolytes are unremarkable, and LFTs are normal. Lipase is low. UA is unremarkable. She is COVID negative. IMAGING: CT of the abdomen and pelvis was performed in the ER. I have reviewed the written report and agree with it, although I am concerned that I do not see contrast passing from her gastric pouch into the proximal jejunum and the gastric pouch to me looks like it might be somewhat dilated. The patient does state that she took the contrast right before they took her to CT, so it had not been very long since she had taken the contrast. ASSESSMENT: Epigastric pain and nausea following oral intake in a gastric bypass patient. I am concerned that she may have a stenosis at her gastrojejunostomy given lack of passage of contrast from her gastric pouch into her proximal jejunum on her CT scan. Although the timing of the oral contrast is not entirely clear, I would have expected at least some of the contrast to have passed through. She could also have a marginal ulcer causing her pain or it could be unrelated to her surgery or she could be experiencing reflux or other causes of epigastric pain. This is clearly related to eating, so I do not think that there is a cardiac etiology. I have discussed the case with Dr. Franco of Gastroenterology and he is planning to perform an EGD tomorrow. I have started a Protonix drip on the patient to treat any underlying ulcer disease. She will be maintained n.p.o. on IV fluids. Her symptoms are manageable as long as she does not take oral intake, so I do not think she will need much in the way of pain management, but she does have morphine ordered p.r.n. as well as Zofran. Job ID: [id number]
--- NOTE | 2020-05-12 08:40 | PRG ---
DATE OF SERVICE: 05/12/2020 SUBJECTIVE: The patient was admitted yesterday with severe nausea and epigastric abdominal pain. CT scan showed what appeared to be a partial obstruction of her looks like her both the gastro-J and her jejunojejunostomy. She is scheduled for an EGD today. She states that it has been going on for about 6 days. She has had some previous intermittent episodes of it, but much worse over the last 6 days. She has not been vomiting. She is passing flatus. OBJECTIVE: VITAL SIGNS: On exam, her temperature is 98.8, pulse 54, and blood pressure 131/85. GENERAL: She is awake, alert, does not appear to be in any distress. HEENT: Unremarkable. LUNGS: Clear. HEART: Regular rate and rhythm. ABDOMEN: Soft. She is tender in the epigastrium and left upper quadrant. LABORATORY DATA: White count is 5, H/H 12 and 37, and platelet count 241. Her electrolytes show an elevated CO2 at 30, but otherwise normal. ASSESSMENT: Anastomotic stricturing, unknown etiology. PLAN: EGD. Job ID: [id number]
[2020-05-12] MEDS: Pantoprazole 40 MG VIAL IVP SCH ×2 (10:23→20:08)
[2020-05-12] MEDS ORDERED: Lidocaine 1% PF 5 ML VIAL ONE (11:22)
[2020-05-12] MEDS ORDERED: Glycopyrrolate 0.2 MG/ML 5 ML SYRINGE ONE (11:22)
[2020-05-12] MEDS ORDERED: PROPOFOL 200 MG/20 ML VIAL ONE (11:22)
--- NOTE | 2020-05-12 13:01 | OP ---
DATE OF PROCEDURE: 05/12/2020 PROCEDURE PERFORMED: Esophagogastroduodenoscopy. PREOPERATIVE DIAGNOSES: 1. Epigastric abdominal pain and nausea with CT scan suggesting retention of contrast in the gastric pouch. 2. Status post gastric bypass surgery in October of 2018. DESCRIPTION OF PROCEDURE: Informed consent was obtained from the patient. She was sedated with total intravenous anesthesia. The bite block was placed and the endoscope was advanced easily down into the jejunum. The esophagus was normal. The GE junction was normal. There was a small gastric pouch, which appeared healthy. There was a wide-open anastomosis, which also appears healthy with no ulceration or stenosis. The blind pouch has normal mucosa with a little bit longer than some. The efferent limb from the stomach was normal. I did not reach the distal anastomosis. IMPRESSION: Normal post Cheikh-en-Y gastric bypass anatomy. The distal anastomosis was not reached today. RECOMMENDATIONS: Trial of clear liquids versus repeat contrast study to reassess emptying from the gastric pouch. It might be that the CT was done very shortly after the patient consume the oral contrast. Job ID: [id number]
[2020-05-12] MEDS ORDERED: MD-Gastroview 120 ML BOT ONE (14:01)
--- NOTE | 2020-05-12 18:24 | RAD ---
UPPER GI: HISTORY: Postprandial pain. Status post gastric bypass Exposure: 0.9 minutes. 10.134 roy per centimeter square FINDINGS: Char Puller film: Surgical clips and suture chain noted in the epigastric region. Patient was administered Gastrografin which passed from the esophagus without any abnormality. Gastrografin was noted in the gastric remnant. Gastrografin passes to multiple small bowel loops. Gastrografin opacifies the distal small bowel anastomosis. No evidence of bowel obstruction. IMPRESSION: No evidence of high-grade obstruction. Transcribed Date/Time: 05/12/2020 6:43 PM
[2020-05-13] MEDS: D5 1/2 NS w/20 mEq KCL 1,000 ML IV SCH ×4 (02:55→20:46)
[2020-05-13] MEDS ORDERED: Multivit, Adult Inj 10 ML VIAL IV SCH (08:30)
[2020-05-13] MEDS ORDERED: Multivitamins, Adult 10 ML in Sodium Chloride 0.9% 500 ML IV SCH (10:30)
[2020-05-13] MEDS: Pantoprazole 40 MG VIAL IVP SCH (11:08)
--- NOTE | 2020-05-13 12:06 | PRG ---
DATE OF SERVICE: 05/13/2020 SUBJECTIVE: The patient reports feeling a little bit better. She wants to try some food. She had a small bowel follow-through. An upper GI that was unremarkable. EGD unremarkable. OBJECTIVE: GENERAL: On exam, she looks good. Her temperature is 98.3, pulse 61, blood pressure 108/73. GENERAL: She is awake and alert. ABDOMEN: Soft, less tender. ASSESSMENT: Doing well. PLAN: Advance diet. Home in the morning. Job ID: [id number]
--- NOTE | 2020-05-13 19:05 | PRG ---
DATE OF SERVICE: 05/13/2020 SUBJECTIVE: In general, the patient feels much better than yesterday. Has not had required much pain medication. There is no nausea or vomiting. OBJECTIVE: VITAL SIGNS: Temperature is 98.3, blood pressure 110/72, pulse of 55. GENERAL: She is alert, conversant, without distress. HEENT: Shows anicteric sclerae. Oropharynx is moist. CV: Shows normal S1, S2. Regular rate and rhythm. CHEST: Shows a breath sounds. ABDOMEN: Soft. No distention. No tympany and really no tenderness. She has active bowel sounds. EXTREMITIES: Shows no edema. LABORATORY DATA: None. Upper GI series performed was normal which passes into the small bowel through the gastric remnant. ASSESSMENT: Upper abdominal pain, much better. 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 CT, EGD, and small-bowel series are all unremarkable. She has had a cholecystectomy. The patient has been reassured of negative findings. RECOMMENDATIONS: 1. Resume bariatric diet, can be discharge in a.m. 2. We will start hyoscyamine 0.125 mg t.i.d. before meals for antispasmodic to see if this helps with her recurrent pain. 3. GI will sign off for now, please recall if needed. Job ID: [id number]
[2020-05-13] MEDS: Famotidine 20 MG TAB PO SCH (20:46)
[2020-05-14] MEDS: Hyoscyamine Sulfate 0.125 MG/5 ML UDCUP PO SCH ×2 (06:11→11:24)
[2020-05-14] MEDS: Famotidine 20 MG TAB PO SCH (08:20)
[2020-05-14] MEDS: D5 1/2 NS w/20 mEq KCL 1,000 ML IV SCH (09:38)
[2020-05-14 14:42] VITALS: BP 121/78; TEMP 98.5
--- NOTE | 2020-05-15 03:48 | DIS ---
DATE OF ADMISSION: 05/13/2020 DATE OF DISCHARGE: 05/14/2020 DISCHARGE DIAGNOSES: Nausea and vomiting of unknown etiology and possible gastroenteritis. PROCEDURES DURING ADMISSION: CT scan of abdomen and pelvis, upper GI series, and EGD. HOSPITAL COURSE: The patient was admitted, given IV fluids, made n.p.o. Her nausea continued. Her electrolytes were fine. GI was consulted. An EGD was performed and they saw no abnormality, so an upper GI with small bowel followthrough was performed, it showed no abnormality. The patient did admitting to eating quite a bit of sunflower seeds prior to this happening, so it is possible she had a partial obstruction that resolved. Her diet was advanced. She is tolerating soft foods well. She is discharged home on her usual medications. She will follow up with me in 2 weeks. Job ID: [id number]
== END 2020-05-14 14:40 | disposition home or self-care (01) | DRG 392 ==
LOC: ERS 18:28 → SURG A 05-11 01:30 → OBSVTOIN 05-13 15:14
PROVIDERS: ADMIT Internal Medicine Gastroenterology; ATTEND Internal Medicine Gastroenterology
PROC: 0DJ08ZZ Inspection of Upper Intestinal Tract, Via Natural or Artificial Opening Endoscopic (ICD-10-PCS; principal; 2020-05-12)
DX: K52.9 Noninfective gastroenteritis and colitis, unspecified (principal); Z20.828 Contact with and (suspected) exposure to other viral communicable diseases; E66.01 Morbid (severe) obesity due to excess calories; Z98.84 Bariatric surgery status; Z90.710 Acquired absence of both cervix and uterus; Z90.49 Acquired absence of other specified parts of digestive tract; Z88.8 Allergy status to other drugs, medicaments and biological substances; Z91.012 Allergy to eggs; Z68.32 Body mass index [BMI] 32.0-32.9, adult
CPT/HCPCS: 36415; 74177; 74246; 80053; 81003; 83690; 84425; 85025; 87635; 96361; 96365; 96366; 96367; 96374; 96375; 96376; C9113; G0378; J2270; J2405; J2704; J3411; J3480; J3490; J7030; Q9963; U0003